=== PATIENT | male | born 1970 | race Caucasian/White ===

== ENCOUNTER 2016-10-21 23:09 | Emergency (ER) | payer MEDICAID ==
[~2016-10-21] VITALS: Ht 180.3 cm; Wt 90.7 kg
[2016-10-21 23:12] VITALS: BP 116/75
--- NOTE | 2016-10-21 23:34 | NUR ---
PT REFUSED TO SIGN ACI. PT LEFT UPSET THAT HE DID NOT GET A STRONGER MEDICATION. PT WALKED BRISKLY OUT OF THE ER.
== END 2016-10-21 23:39 | disposition home or self-care (01) ==
LOC: ER 23:10
DX: M54.42 Lumbago with sciatica, left side (principal); I10 Essential (primary) hypertension; X50.1XXA Overexertion from prolonged static or awkward postures, initial encounter; Y93.89 Activity, other specified; Y92.89 Other specified places as the place of occurrence of the external cause; Y99.8 Other external cause status
CPT/HCPCS: A4606; Z7610

== ENCOUNTER 2019-01-29 17:40 | Emergency (ER) | payer BC, MEDICAID ==
[~2019-01-29] VITALS: Ht 180.3 cm; Wt 91.6 kg
[2019-01-29 17:46] VITALS: BP 138/85
== END 2019-01-29 18:08 | disposition home or self-care (01) ==
LOC: ER 17:49
DX: H60.92 Unspecified otitis externa, left ear (principal)

== ENCOUNTER 2019-01-30 08:04 | Emergency (ER) | payer MEDICAID ==
[~2019-01-30] VITALS: Ht 180.3 cm; Wt 91.6 kg
[2019-01-30 08:09] VITALS: BP 118/97
--- NOTE | 2019-01-30 08:25 | NUR ---
DR GOMEZ AT BEDSIDE FOR EVAL AND RECOMMENDED ADMISSION
--- NOTE | 2019-01-30 08:32 | NUR ---
MOM TELLING DR GOMEZ THAT PATIENT DOESN'T WANT TO BE ADMITTED.
--- NOTE | 2019-01-30 08:33 | NUR ---
DR GOMEZ AT BEDSIDE AGAIN TO EXPLAIN TO HIM THE NEED FOR HIM TO STAY
--- NOTE | 2019-01-30 08:38 | NUR ---
WALKED OUT IN WITH STEADY GAIT WITH MOM
== END 2019-01-30 08:44 | disposition left against medical advice (07) ==
LOC: ER 08:06
DX: H92.02 Otalgia, left ear (principal)